=== PATIENT | male | born 1955 | race Caucasian/White ===

== ENCOUNTER 2017-01-31 18:22 | Emergency (ER) | payer MEDICAID, OTHER ==
[~2017-01-31] VITALS: Ht 180.3 cm; Wt 71.0 kg
[2017-01-31 18:29] VITALS: BP 140/84; PULSE 95; RESP 16; TEMP 98.6; O2SAT 100
[2017-01-31] MEDS ORDERED: SODIUM CHLOR 0.9% 1000 ML INJ 1,000 ML IV ONE (19:03)
[2017-01-31] MEDS ORDERED: SODIUM CHLORIDE 0.9% FLUSH 10 ML FLUSH IVF PRN (19:15)
--- NOTE | 2017-01-31 19:15 | PD ---
HPI Chief Complaint: Syncope/Near-Syncope Time Seen by Provider: 19:03 Travel History International Travel<30 days: No Contact w/Intl Traveler<30days: No Traveled to known affect area: No History of Present Illness HPI The patient is a 61-year-old male with a history of syncopal spells due to hypotension who fainted twice today. The patient states he is dehydrated because of his poor diet. He denies any chest pain, shortness of breath, nausea , vomiting or diarrhea. He states he had a minor bump on the head which does not even hurt now there is no visible signs of trauma. He states he fainted twice. His friends called the ambulance. The patient does smoke three fourths pack a day. His only medication is trazodone and he takes it correctly. He uses this for sleep. He denies any palpitations. He was standing and talking when these episodes happen. He denies any fever or upper respiratory symptoms. PFSH Past Medical History Cancer: Yes (RIGHT KIDNEY) Cardiovascular Problems: Yes (HYPOTENSION) Diminished Hearing: No Insomnia: Yes Tetanus Vaccination: Unknown Influenza Vaccination: No Past Surgical History Genitourinary Surgery: Yes (RADIOFREQUENCY ABLATION TO RIGHT KIDNEY CANCER) Social History Alcohol Use: No Tobacco Use: Yes (11/11 PPD) Substance Use: No Allergies-Medications (Allergen,Severity, Reaction): Coded Allergies: No Known Allergies (Unverified , 01/31/17) Review of Systems Except as stated in HPI: all other systems reviewed are Neg Physical Exam Narrative GENERAL: The patient is alert, oriented 3 in no apparent distress. His vital signs are normal. SKIN: Warm and dry. HEAD: Atraumatic. Normocephalic. EYES: Pupils equal and round. No scleral icterus. No injection or drainage. ENT: No nasal bleeding or discharge. Mucous membranes pink and moist. NECK: Trachea midline. No JVD. CARDIOVASCULAR: Regular rate and rhythm. No murmur appreciated. RESPIRATORY: No accessory muscle use. Clear to auscultation. Breath sounds equal bilaterally. GASTROINTESTINAL: Abdomen soft, non-tender, nondistended. Hepatic and splenic margins not palpable. No guarding or rebound is present. MUSCULOSKELETAL: No obvious deformities. No clubbing. No cyanosis. No edema. NEUROLOGICAL: Awake and alert. No obvious cranial nerve deficits. Motor grossly within normal limits. Normal speech and gait. PSYCHIATRIC: Appropriate mood and affect; insight and judgment normal. Data Data Last Documented VS Vital Signs Date Time Temp Pulse Resp B/P Pulse Ox O2 Delivery O2 Flow Rate FiO2 01/31/17 18:34 16 99 Room Air 01/31/17 18:29 98.6 95 140/84 Orders Electrocardiogram (01/31/17 19:03) Ecg Monitoring (01/31/17 19:03) Oximetry (01/31/17 19:03) Orthostatic Vital Signs (01/31/17 19:03) MDM Medical Decision Making Medical Screen Exam Complete: Yes Emergency Medical Condition: Yes Medical Record Reviewed: Yes Interpretation(s) The EKG shows a normal sinus rhythm rate of 88 and is completely normal. Differential Diagnosis Cardiac syncope, dehydration and postural hypotension, vasovagal syncope Narrative Course The patient appears to have dehydration and likely postural hypotension. The patient appears mildly dehydrated clinically and he states he feels dehydrated. Cardiac syncope is highly unlikely. Vasovagal syncope is unlikely, he was not nauseated and there is no reason for any increased vagal response. The patient states he feels fine now and wants to go home. He did not want IV fluids or blood work. He states he has bad veins and does not want to go through multiple venipunctures. Diagnosis Primary Impression: Orthostatic syncope Additional Impression: Mild dehydration Additional Instructions: As we discussed, hydrate herself at home to avoid dehydration and increasing her risk of fainting. Follow-up next week with your primary care physician. Med/Other Pt SpecificInfo: No Change to Meds Disposition: 01 DISCHARGE HOME Condition: Stable Ralf Link MD Jan 31, 2017 19:14
[2017-01-31 19:41] VITALS: RESP 16; O2SAT 98
[2017-01-31 19:53] VITALS: BP 152/86
--- NOTE | 2017-02-01 15:49 | EKG ---
Date Performed: 01/31/2017 Time Performed: 19:12:42 PTAGE: 61 years EKG: Sinus rhythm . Normal ECG NO PREVIOUS TRACING DOCTOR: Dickson Reyes Interpretating Date/Time 02/01/2017 15:47:20
== END 2017-01-31 19:56 | disposition home or self-care (01) ==
LOC: PHED 18:22
DX: I95.1 Orthostatic hypotension (principal); E86.0 Dehydration; G47.00 Insomnia, unspecified; F17.200 Nicotine dependence, unspecified, uncomplicated; Z85.528 Personal history of other malignant neoplasm of kidney; Z86.79 Personal history of other diseases of the circulatory system
CPT/HCPCS: 93005